=== PATIENT | female | born 1990 | race African-American/Black ===

== ENCOUNTER 2022-07-13 09:08 | Emergency (ER) | payer OTHER ==
[~2022-07-13] VITALS: Ht 167.6 cm; Wt 70.0 kg
[2022-07-13 10:00] LABS: BASOPHILS % 0.1 % (0.0-2.0); EOSINOPHILS % 0.9 % (0.0-5.0); HEMATOCRIT. 35.7 % (36.0-48.0); HEMOGLOBIN. 11.6 g/dL (12.0-16.0); LYMPHOCYTES % 11.4 % (20.0-50.0); MEAN CORPUSCULAR HEMOGLOBIN 27.3 pg (28.0-32.0); MEAN CORPUSCULAR VOLUME 83.6 fL (81.0-99.0); MEAN PLATELET VOLUME 7.7 fl (7.4-10.4); MONOCYTES % 9.2 % (2.0-8.0); NEUTROPHILS % 78.4 % (40.0-76.0); PLATELET 350 x1000/uL (130-400); RED BLOOD CELL COUNT 4.27 mill/uL (4.2-5.4)
[2022-07-13 10:07] LABS: CHLORIDE 107 mEq/L (98-107)
[2022-07-13 10:16] LABS: B-HCG QUANTITATIVE < 1 mIU/mL (<3)
[2022-07-13] MEDS ORDERED: IBUP-2030 PO (11:10)
[2022-07-13 12:00] VITALS: BP 115/72
== END 2022-07-13 12:11 | disposition home or self-care (01) ==
LOC: ER 09:08
DX: R10.2 Pelvic and perineal pain (principal); D25.9 Leiomyoma of uterus, unspecified
CPT/HCPCS: 36415; 76856; 80053; 84702; 85025; 99284